=== PATIENT | female | born 1995 | race Caucasian/White ===

== ENCOUNTER 2024-05-15 23:22 | Emergency (ER) | payer MEDICAID ==
[~2024-05-15] VITALS: Ht 154.9 cm; Wt 67.1 kg
[2024-05-16] MEDS: DOCUSATE SODIUM 100 MG CAPSULE PO ONE (00:21)
[2024-05-16] MEDS ORDERED: DOCUSATE SODIUM 100 MG CAPSULE PO ONE (00:23)
[2024-05-16 01:55] VITALS: BP 114/70; TEMP 98.1; O2SAT 98
== END 2024-05-16 01:56 | disposition home or self-care (01) ==
LOC: ER 23:29
DX: H91.91 Unspecified hearing loss, right ear (principal); Z86.73 Personal history of transient ischemic attack (TIA), and cerebral infarction without residual deficits
CPT/HCPCS: A4606; A4663

== ENCOUNTER 2024-05-23 07:28 | Emergency (ER) | payer MEDICAID ==
[~2024-05-23] VITALS: Ht 154.9 cm; Wt 68.0 kg
[2024-05-23 08:07] LABS: *CLARITY,URINE CLOUDY (CLEAR); *URINE HCG, QUAL NEGATIVE (NEGATIVE)
[2024-05-23 08:08] LABS: *COLOR,URINE RED (YELLOW)
[2024-05-23] MEDS ORDERED: HYDROCODONE/APAP 5-325MG TABLET ONE (08:53)
[2024-05-23] MEDS: HYDROCODONE/APAP 5-325MG TABLET PO ONE (08:57)
[2024-05-23] MEDS ORDERED: IBUPROFEN 200 MG TABLET ONE (09:00)
[2024-05-23] MEDS ORDERED: LORAZEPAM 0.5 MG TABLET ONE (09:01)
[2024-05-23] MEDS: IBUPROFEN 200 MG TABLET PO ONE (09:02)
[2024-05-23] MEDS: ACETAMINOPHEN 500 MG TABLET PO ONE (09:02)
[2024-05-23] MEDS: LORAZEPAM 0.5 MG TABLET PO ONE (09:02)
[2024-05-23 10:02] LABS: BACTERIA,URINE NONE SEEN /HPF (NONE SEEN); RBC,URINE TNTC /HPF (0-3); SQUAMOUS EPITHELIAL CELL,UR NONE SEEN /HPF (NONE SEEN)
[2024-05-23] MEDS ORDERED: CIPR250T4 PO (10:10)
[2024-05-23] MEDS: CIPROFLOXACIN IV 400 MG in PREMIXED 1 EACH IV STA (10:27)
[2024-05-23] MEDS ORDERED: ONDANSETRON 4 MG/2 ML VIAL ONE (11:14)
[2024-05-23] MEDS: ONDANSETRON 4 MG/2 ML VIAL IV ONE (11:23)
[2024-05-23 11:41] VITALS: BP 128/74; TEMP 98.3; O2SAT 98
== END 2024-05-23 11:42 | disposition home or self-care (01) ==
LOC: ER 07:28
DX: N39.0 Urinary tract infection, site not specified (principal); R10.2 Pelvic and perineal pain; Z86.73 Personal history of transient ischemic attack (TIA), and cerebral infarction without residual deficits; Z79.899 Other long term (current) drug therapy
CPT/HCPCS: 99284; 96365; 96375; 81001; 84703; J0744; J2405; J7040; A4606; A4663

== ENCOUNTER 2025-04-18 14:04 | Emergency (ER) | payer MEDICAID ==
[~2025-04-18] VITALS: Ht 154.9 cm; Wt 68.0 kg
[~2025-04-18 14:04] MED LIST: CIPR250T4 PO
[2025-04-18] MEDS: IPRATROPIUM BROMIDE 0.5 MG/2.5 ML NEBU NEB ONE (14:40)
[2025-04-18] MEDS: ALBUTEROL SULFATE 2.5 MG/3 ML NEBU NEB ONE (14:40)
[2025-04-18] MEDS ORDERED: ALBUTEROL SULFATE 2.5 MG/3 ML NEBU ONE (14:42)
[2025-04-18] MEDS ORDERED: IPRATROPIUM BROMIDE 0.5 MG/2.5 ML NEBU ONE (14:43)
[2025-04-18 14:45] VITALS: O2SAT 97
[2025-04-18 14:53] LABS: PLATELET COUNT (AUTO) 255 K/uL (179-408); RED BLOOD CELL COUNT(AUTO) 4.62 MIL/uL (3.63-4.92); RED CELL DISTRIBUTION WIDTH 15.3 % (12.3-17.7); WHITE BLOOD COUNT (AUTO) 4.5 K/uL (3.8-11.8)
[2025-04-18 15:00] LABS: CREATININE 0.7 mg/dL (0.6-1.3); SODIUM SERUM 137.0 mmol/L (136-145); UREA NITROGEN, BLOOD 11.0 mg/dL (7-18)
[2025-04-18] MEDS ORDERED: GABA300T25 PO (15:05)
[2025-04-18] MEDS ORDERED: LEVE1000 PO (15:05)
[2025-04-18] MEDS ORDERED: HYDR-3641 PO (15:05)
[2025-04-18] MEDS ORDERED: OXCA600T8 PO (15:05)
[2025-04-18] MEDS ORDERED: MAG HYDROX/AL HYDROX/SIMETH 30 ML LIQUID UDC ONE (15:08)
[2025-04-18] MEDS: MAG HYDROX/AL HYDROX/SIMETH 30 ML LIQUID UDC PO ONE (15:16)
[2025-04-18 15:40] VITALS: O2SAT 99
[2025-04-18] MEDS ORDERED: PRED20TA PO (16:14)
[2025-04-18] MEDS ORDERED: ALBU8.5H8 INH (16:14)
[2025-04-18 16:34] VITALS: BP 114/71; TEMP 97.7; O2SAT 99
== END 2025-04-18 16:35 | disposition home or self-care (01) ==
LOC: ER 14:04
DX: J98.01 Acute bronchospasm (principal); T78.1XXA Other adverse food reactions, not elsewhere classified, initial encounter; G40.909 Epilepsy, unspecified, not intractable, without status epilepticus; Z79.52 Long term (current) use of systemic steroids; Z79.899 Other long term (current) drug therapy; Z86.73 Personal history of transient ischemic attack (TIA), and cerebral infarction without residual deficits; Z88.0 Allergy status to penicillin; Z88.5 Allergy status to narcotic agent; Z88.7 Allergy status to serum and vaccine; Z86.79 Personal history of other diseases of the circulatory system; Z87.39 Personal history of other diseases of the musculoskeletal system and connective tissue; X58.XXXA Exposure to other specified factors, initial encounter
CPT/HCPCS: 99285; 80048; 82962; 85025; 36415; 94644; J7512; A4606; A4663; J3590